=== PATIENT | male | born 1990 | race American Indian/Alaskan Native ===

== ENCOUNTER 2017-01-10 18:31 | Emergency (ER) | payer BC, OTHER ==
[2017-01-10 19:40] VITALS: BP 127/90
--- NOTE | 2017-01-10 19:46 | EDM.PDOC ---
ED HPI GENERAL MEDICAL PROBLEM - General Chief Complaint: Respiratory Problem Stated Complaint: FEELS LIKE LUNGS ARE INFLAMED [id number] Time Seen by Provider: 01/10/17 19:42 Source of Information: Reports: Patient History Limitations: Reports: No Limitations - History of Present Illness INITIAL COMMENTS - FREE TEXT/NARRATIVE: few days h/o lungs hurting, just started smoking recently. had to miss work. - Related Data Allergies Allergy/AdvReac Type Severity Reaction Status Date / Time No Known Allergies Allergy Verified 01/10/17 19:41 Home Meds: Home Meds . [No Known Home Meds] 03/16/15 [History] Past Medical History - Past Health History Medical/Surgical History: Denies Medical/Surgical History - Infectious Disease History Infectious Disease History: Reports: None Social & Family History - Tobacco Use Smoking Status *Q: Current Some Day Smoker Years of Tobacco use: 1 Packs/Tins Daily: 0.1 Second Hand Smoke Exposure: Yes - Caffeine Use Caffeine Use: Reports: Soda - Alcohol Use Days Per Week of Alcohol Use: 1 Number of Drinks Per Day: 12 Total Drinks Per Week: 12 - Recreational Drug Use Recreational Drug Use: Yes Drug Use in Last 12 Months: No Recreational Drug Type: Reports: Marijuana/Hashish Recreational Drug Use Frequency: Not Used In Over 6 Months ED ROS GENERAL - Review of Systems Review Of Systems: ROS reveals no pertinent complaints other than HPI. ED EXAM, GENERAL - Physical Exam Exam: See Below Exam Limited By: No Limitations General Appearance: Alert, WD/WN, No Apparent Distress Ears: Hearing Grossly Normal Throat/Mouth: Normal Voice, No Airway Compromise Head: Atraumatic Neck: Non-Tender, Full Range of Motion Respiratory/Chest: No Respiratory Distress, Lungs Clear, Normal Breath Sounds, No Accessory Muscle Use, Chest Non-Tender. No: Decreased Breath Sounds, Crackles, Rales, Rhonchi, Wheezing, Stridor, Pleural Rub, Accessory Muscle Use, Retractions, Splinting, Prolonged Expiration Cardiovascular: Regular Rate, Rhythm GI/Abdominal: Soft, Non-Tender Neurological: Alert, Oriented, Normal Cognition, Normal Gait, No Motor/Sensory Deficits Psychiatric: Normal Affect, Normal Mood Skin Exam: Warm, Dry Lymphatic: No Adenopathy Course - Vital Signs Last Recorded V/S: Last Vital Signs Temp 36.8 C 01/10/17 19:00 Pulse 89 01/10/17 19:00 Resp 16 01/10/17 19:00 BP 127/90 01/10/17 19:00 Pulse Ox 99 01/10/17 19:00 - Orders/Labs/Meds Orders: Active Orders 24 hr Category Date Time Status Chest 2V [CR] Urgent Exams 01/10/17 19:04 Taken - Re-Assessments/Exams Free Text/Narrative Re-Assessment/Exam: 01/10/17 19:44 negative x-ray discussed with Pt. Departure - Departure Time of Disposition: 19:44 Disposition: Home, Self-Care 01 Condition: good Clinical Impression: Chest wall discomfort - Discharge Information Instructions: Chest Wall Pain, [id number] Forms: ED Department Discharge Additional Instructions: 1) stop smoking 2) rest 3) try heat to sore areas 4) try tylenol or motrin for discomfort 5) follow up at clinic or recheck as needed - My Orders Last 24 Hours: My Active Orders 01/10/17 19:04 Chest 2V [CR] Urgent - Assessment/Plan Last 24 Hours: My Active Orders 01/10/17 19:04 Chest 2V [CR] Urgent
== END 2017-01-10 19:48 | disposition home or self-care (01) ==
LOC: DL.ED 18:31
DX: R07.89 Other chest pain (principal); F17.210 Nicotine dependence, cigarettes, uncomplicated
CPT/HCPCS: 71020; 99284

== ENCOUNTER 2017-10-21 15:26 | Emergency (ER) | payer OTHER ==
[2017-10-21 15:45] VITALS: BP 141/83
--- NOTE | 2017-10-21 16:32 | EDM.PDOC ---
Scribed by Isidra Chang 10/21/17 1632 for Syed Blanco MD ED HPI GENERAL MEDICAL PROBLEM - General Chief Complaint: Respiratory Problem Stated Complaint: HEAD POUNDING,CONGESTED [id number] Time Seen by Provider: 10/21/17 16:10 Source of Information: Reports: Patient, RN, RN Notes Reviewed History Limitations: Reports: No Limitations - History of Present Illness INITIAL COMMENTS - FREE TEXT/NARRATIVE: Sore throat x3 days. Mild cough. No fevers but did no measure temperature. Denies any other symptoms. Duration: Getting Worse Location: Reports: Other (throat) Quality: Reports: Ache Severity: Moderate Improves with: Reports: None Worsens with: Reports: None Associated Symptoms: Reports: No Other Symptoms Headache Pain Score (Numeric/FACES): 6 - Related Data Allergies Allergy/AdvReac Type Severity Reaction Status Date / Time No Known Allergies Allergy Verified 01/10/17 19:41 Home Meds: Home Meds . [No Known Home Meds] 03/16/15 [History] Past Medical History - Past Health History Medical/Surgical History: Denies Medical/Surgical History - Infectious Disease History Infectious Disease History: Reports: None Social & Family History - Family History Family Medical History: Noncontributory - Tobacco Use Smoking Status *Q: Current Some Day Smoker Years of Tobacco use: 1 Packs/Tins Daily: 0.1 Second Hand Smoke Exposure: Yes - Caffeine Use Caffeine Use: Reports: Soda - Alcohol Use Days Per Week of Alcohol Use: 1 Number of Drinks Per Day: 12 Total Drinks Per Week: 12 - Recreational Drug Use Recreational Drug Use: Yes Drug Use in Last 12 Months: No Recreational Drug Type: Reports: Marijuana/Hashish Recreational Drug Use Frequency: Not Used In Over 6 Months ED ROS ENT - Review of Systems Review Of Systems: ROS reveals no pertinent complaints other than HPI. ED EXAM, ENT - Physical Exam Exam: See Below Exam Limited By: No Limitations General Appearance: Alert, WD/WN, No Apparent Distress Eye Exam: Bilateral Eye: Normal Inspection Ears: Normal External Exam, Normal Canal, Hearing Grossly Normal, Normal TMs Nose: Normal Inspection, Normal Mucousa, No Blood Mouth/Throat: Normal Gums, Normal Lips, Normal Teeth, Tonsillar Erythema, Tonsillar Exudates, Other (pharyngeal erythema with tonsillar exudates.). No: Uvular Deviation, Uvular Edema Head: Atraumatic, Normocephalic Neck: Other (shoddy cervical lymphadenopathy. No nuchal rigidity. ) Respiratory/Chest: No Respiratory Distress, Lungs Clear, Normal Breath Sounds, No Accessory Muscle Use, Chest Non-Tender, Other (occasional dry cough.) Cardiovascular: Normal Peripheral Pulses, Regular Rate, Rhythm, No Edema, No Gallop, No JVD, No Murmur, No Rub GI/Abdominal: Normal Bowel Sounds, Soft, Non-Tender, No Organomegaly, No Distention, No Abnormal Bruit, No Mass (Male) Exam: Deferred Rectal (Males) Exam: Deferred Back: Normal Inspection, Full Range of Motion Extremities: Normal Inspection, Normal Range of Motion, Non-Tender, No Pedal Edema, Normal Capillary Refill Neurological: Alert, Oriented, CN II-XII Intact, Normal Cognition, Normal Gait, No Motor/Sensory Deficits Psychiatric: Normal Affect, Normal Mood Skin: Warm, Dry, Intact, Normal Color, No Rash Course - Vital Signs Last Recorded V/S: Last Vital Signs Temp 36.8 C 10/21/17 15:33 Pulse 100 10/21/17 15:33 Resp 18 10/21/17 15:33 BP 141/83 H 10/21/17 15:33 Pulse Ox 97 10/21/17 15:33 - Orders/Labs/Meds Labs: Rapid strep: Positive. Departure - Departure Time of Disposition: 16:18 Disposition: Home, Self-Care 01 Condition: Good Clinical Impression: Strep pharyngitis - Discharge Information Instructions: Strep Throat, [id number] Forms: ED Department Discharge Additional Instructions: RX: Zithromax 500mg. RX: Prednisone 20mg. Frequent salt water garlges until improved. Follow up in clinic in 2days if not improved. I have read and agree with the documentation that has been completed regarding this visit. By signing this record, I attest that the documentation was completed in my physical presence and is an accurate record of the encounter.
== END 2017-10-21 16:30 | disposition home or self-care (01) ==
LOC: DL.ED 15:26
DX: J02.0 Streptococcal pharyngitis (principal); F17.210 Nicotine dependence, cigarettes, uncomplicated
CPT/HCPCS: 87430; 87804; 99282

== ENCOUNTER 2018-04-12 12:21 | Emergency (ER) | payer MEDICAID, OTHER ==
[2018-04-12 12:52] VITALS: BP 123/92
[2018-04-12 13:34] LABS: ANION GAP 13.2; CHLORIDE,CL 99 mmol/L (101-111); SODIUM,NA 135 mmol/L (135-145)
[2018-04-12] MEDS ORDERED: Penicillin G Benzathine/Procaine 600-600 1.2 Millunits/2 ML Syringe IM ONE (13:37)
--- NOTE | 2018-04-12 13:54 | EDM.PDOC ---
Scribed by Isidra Chang 04/12/18 [id number] for Roque Obrien PA ED HPI GENERAL MEDICAL PROBLEM - General Chief Complaint: ENT Problem Stated Complaint: NOT FEELING GOOD Time Seen by Provider: 04/12/18 12:59 Source of Information: Reports: Patient, RN, RN Notes Reviewed History Limitations: Reports: No Limitations - History of Present Illness INITIAL COMMENTS - FREE TEXT/NARRATIVE: Patient is a 28-year-old male states yesterday he had a sore throat. He has been drinking warm salt water. He also has sharp abdominal pain this a.m. (no surgeries). Onset Date: 04/11/18 Duration: Getting Worse Location: Reports: Abdomen, Other (throat) Quality: Reports: Ache Severity: Moderate Improves with: Reports: None, Medication Associated Symptoms: Reports: No Other Symptoms Throat Pain Score (Numeric/FACES): 5 - Related Data Allergies Allergy/AdvReac Type Severity Reaction Status Date / Time No Known Allergies Allergy Verified 04/12/18 12:48 Home Meds: Home Meds . [No Known Home Meds] 03/16/15 [History] Past Medical History - Past Health History Medical/Surgical History: Denies Medical/Surgical History HEENT History: Reports: None Cardiovascular History: Reports: None Respiratory History: Reports: None Gastrointestinal History: Reports: None Genitourinary History: Reports: None Musculoskeletal History: Reports: None Neurological History: Reports: None Psychiatric History: Reports: None Endocrine/Metabolic History: Reports: None Hematologic History: Reports: None Immunologic History: Reports: None Oncologic (Cancer) History: Reports: None Dermatologic History: Reports: None - Infectious Disease History Infectious Disease History: Reports: None Social & Family History - Family History Family Medical History: Noncontributory - Tobacco Use Smoking Status *Q: Former Smoker Used Tobacco, but Quit: Yes Month/Year Tobacco Last Used: ? - Caffeine Use Caffeine Use: Reports: Soda - Recreational Drug Use Recreational Drug Use: No ED ROS ENT - Review of Systems Review Of Systems: ROS reveals no pertinent complaints other than HPI. ED EXAM, ENT - Physical Exam Exam: See Below Exam Limited By: No Limitations General Appearance: Other (ill appearing) Eye Exam: Bilateral Eye: EOMI, Normal Inspection, PERRL Ears: Normal External Exam, Normal Canal, Hearing Grossly Normal, Normal TMs Nose: Normal Inspection, Normal Mucousa, No Blood Mouth/Throat: Other (enlarged tonsils with exudates) Head: Atraumatic, Normocephalic Neck: Other (bilateral cervical lymphadenopathy) Respiratory/Chest: No Respiratory Distress, Lungs Clear, Normal Breath Sounds, No Accessory Muscle Use, Chest Non-Tender Cardiovascular: Normal Peripheral Pulses, Regular Rate, Rhythm, No Edema, No Gallop, No JVD, No Murmur, No Rub GI/Abdominal: Other (diffuse abdominal pain lower abdomen. Negative psoas. Positive right lower quadrant.) (Male) Exam: Deferred Rectal (Males) Exam: Deferred Back: Normal Inspection, Full Range of Motion Extremities: Normal Inspection, Normal Range of Motion, Non-Tender, No Pedal Edema, Normal Capillary Refill Neurological: Alert Psychiatric: Normal Affect, Normal Mood Skin: Warm, Dry, Intact, Normal Color, No Rash Lymphatic: Adenopathy (cervical lymphadenopathy adenopathy) Course - Vital Signs Last Recorded V/S: Last Vital Signs Temp 38.1 C 04/12/18 12:49 Pulse 105 H 04/12/18 12:49 Resp 18 04/12/18 12:49 BP 123/92 H 04/12/18 12:49 Pulse Ox 99 04/12/18 12:49 - Orders/Labs/Meds Orders: Active Orders 24 hr Category Date Time Status CULTURE BLOOD [BC] Stat Lab 04/12/18 13:09 Received DRUG SCREEN URINE BIORAD [URCHEM] Stat Lab 04/12/18 13:09 Ordered UA W/MICROSCOPIC [URIN] Stat Lab 04/12/18 13:09 Ordered Labs: Laboratory Tests 04/12/18 04/12/18 04/12/18 Range/Units 13:09 13:09 13:09 WBC (5.0-10.0) 10^3/uL RBC (4.6-6.2) 10^6/uL Hgb (14.0-18.0) g/dL Hct (40.0-54.0) % MCV (80-100) fL MCH (27.0-34.0) pg MCHC (33.0-35.0) g/dL Plt Count (150-450) 10^3/uL Neut % (Auto) (42.2-75.2) % Lymph % (Auto) (20.5-50.1) % Ramsey % (Auto) (2-8) % Eos % (Auto) (1.0-3.0) % Baso % (Auto) (0.0-1.0) % Sodium (135-145) mmol/L Potassium (3.6-5.0) mmol/L Chloride (101-111) mmol/L Carbon Dioxide (21.0-31.0) mmol/L Anion Gap BUN (7-18) mg/dL Creatinine (0.6-1.3) mg/dL Est Cr Clr Drug Dosing mL/min Estimated GFR (MDRD) BUN/Creatinine Ratio Glucose (74-105) mg/dL Lactic Acid 2.2 (0.5-2.2) mmol/L Calcium (8.4-10.2) mg/dl Total Bilirubin (0.2-1.0) mg/dL AST (10-42) IU/L ALT (10-60) IU/L Alkaline Phosphatase (42-121) IU/L Total Protein (6.7-8.2) g/dl Albumin (3.2-5.5) g/dl Globulin Albumin/Globulin Ratio Urine Color Straw (YELLOW) Urine Appearance Clear (CLEAR) Urine pH 8.5 (5.0-9.0) Ur Specific [place] 1.020 (1.005-1.030) Urine Protein 30 H (NEGATIVE) Urine Glucose (UA) Negative (NEGATIVE) Urine Ketones Negative (NEGATIVE) Urine Occult Blood Negative (NEGATIVE) Urine Nitrite Negative (NEGATIVE) Urine Bilirubin Negative (NEGATIVE) Urine Urobilinogen 1.0 (0.2-1.0) mg/dL Ur Leukocyte Esterase Negative (NEGATIVE) Urine RBC 0-5 /HPF Urine WBC 0-5 (0-5/HPF) /HPF Ur Epithelial Cells Rare /HPF Amorphous Sediment Few (0/HPF) /HPF Urine Bacteria Not seen (0-FEW/HPF) /HPF Urine Mucus Many H /LPF Urine Opiates Screen Negative (NEGATIVE) Ur Oxycodone Screen Positive H (NEGATIVE) Urine Methadone Screen Negative (NEGATIVE) Ur Barbiturates Screen Negative (NEGATIVE) U Tricyclic Antidepress Negative (NEGATIVE) Ur Phencyclidine Scrn Negative (NEGATIVE) Ur Amphetamine Screen Negative (NEGATIVE) U Methamphetamines Scrn Negative (NEGATIVE) Urine MDMA Screen Negative (NEGATIVE) U Benzodiazepines Scrn Negative (NEGATIVE) Urine Cocaine Screen Negative (NEGATIVE) U Marijuana (THC) Screen Positive H (NEGATIVE) 04/12/18 04/12/18 Range/Units 13:09 13:09 WBC 14.9 H (5.0-10.0) 10^3/uL RBC 4.89 (4.6-6.2) 10^6/uL Hgb 15.1 (14.0-18.0) g/dL Hct 44.9 (40.0-54.0) % MCV 91.8 D (80-100) fL MCH 30.9 (27.0-34.0) pg MCHC 33.6 (33.0-35.0) g/dL Plt Count 214 (150-450) 10^3/uL Neut % (Auto) 87.5 H (42.2-75.2) % Lymph % (Auto) 5.3 L (20.5-50.1) % Ramsey % (Auto) 7.0 (2-8) % Eos % (Auto) 0.1 L (1.0-3.0) % Baso % (Auto) 0.1 (0.0-1.0) % Sodium 135 (135-145) mmol/L Potassium 3.2 L (3.6-5.0) mmol/L Chloride 99 L (101-111) mmol/L Carbon Dioxide 26.0 (21.0-31.0) mmol/L Anion Gap 13.2 BUN 7 (7-18) mg/dL Creatinine 0.9 (0.6-1.3) mg/dL Est Cr Clr Drug Dosing 144.61 mL/min Estimated GFR (MDRD) > 60 BUN/Creatinine Ratio 7.77 Glucose 109 H (74-105) mg/dL Lactic Acid (0.5-2.2) mmol/L Calcium 9.3 (8.4-10.2) mg/dl Total Bilirubin 0.8 (0.2-1.0) mg/dL AST 26 (10-42) IU/L ALT 21 (10-60) IU/L Alkaline Phosphatase 76 (42-121) IU/L Total Protein 8.4 H (6.7-8.2) g/dl Albumin 4.5 (3.2-5.5) g/dl Globulin 3.9 Albumin/Globulin Ratio 1.15 Urine Color (YELLOW) Urine Appearance (CLEAR) Urine pH (5.0-9.0) Ur Specific [place] (1.005-1.030) Urine Protein (NEGATIVE) Urine Glucose (UA) (NEGATIVE) Urine Ketones (NEGATIVE) Urine Occult Blood (NEGATIVE) Urine Nitrite (NEGATIVE) Urine Bilirubin (NEGATIVE) Urine Urobilinogen (0.2-1.0) mg/dL Ur Leukocyte Esterase (NEGATIVE) Urine RBC /HPF Urine WBC (0-5/HPF) /HPF Ur Epithelial Cells /HPF Amorphous Sediment (0/HPF) /HPF Urine Bacteria (0-FEW/HPF) /HPF Urine Mucus /LPF Urine Opiates Screen (NEGATIVE) Ur Oxycodone Screen (NEGATIVE) Urine Methadone Screen (NEGATIVE) Ur Barbiturates Screen (NEGATIVE) U Tricyclic Antidepress (NEGATIVE) Ur Phencyclidine Scrn (NEGATIVE) Ur Amphetamine Screen (NEGATIVE) U Methamphetamines Scrn (NEGATIVE) Urine MDMA Screen (NEGATIVE) U Benzodiazepines Scrn (NEGATIVE) Urine Cocaine Screen (NEGATIVE) U Marijuana (THC) Screen (NEGATIVE) Meds: Medications Discontinued Medications Generic Name Dose Route Start Last Admin Trade Name Anthonyq PRN Reason Stop Dose Admin Penicillin G Procaine/Benzathine 1.2 millunits 04/12/18 13:37 04/12/18 13:50 Bicillin C-R 600/600 IM 04/12/18 13:38 1.2 millunits ONETIME ONE Administration Departure - Departure Time of Disposition: 13:51 Disposition: Home, Self-Care 01 Condition: Poor Clinical Impression: Strep pharyngitis - Discharge Information *PRESCRIPTION DRUG MONITORING PROGRAM REVIEWED*: Not Applicable *COPY OF PRESCRIPTION DRUG MONITORING REPORT IN PATIENT BRANNON: Not Applicable Instructions: Strep Throat, [id number] Forms: ED Department Discharge Care Plan Goals: The patient was advised of the examination and lab results during the visit. The patient was given an injection of Bicillin while in the ED. The patient was discharged with a script for Azithromycin (250 mg) #6 to take 2 by mouth on day 1 and 1 by mouth on days 2-5. The patient should take Tylenol or ibuprofen as directed for temporary symptom relief. If the patient has any additional symptoms or concerns, the patient should follow-up with his primary care facility or return to the emergency department. - My Orders Last 24 Hours: My Active Orders 04/12/18 13:09 CULTURE BLOOD [BC] Stat DRUG SCREEN URINE BIORAD [URCHEM] Stat UA W/MICROSCOPIC [URIN] Stat - Assessment/Plan Last 24 Hours: My Active Orders 04/12/18 13:09 CULTURE BLOOD [BC] Stat DRUG SCREEN URINE BIORAD [URCHEM] Stat UA W/MICROSCOPIC [URIN] Stat I have read and agree with the documentation that has been completed regarding this visit. By signing this record, I attest that the documentation was completed in my physical presence and is an accurate record of the encounter.
== END 2018-04-12 14:00 | disposition home or self-care (01) ==
LOC: DL.ED 12:21
DX: J02.0 Streptococcal pharyngitis (principal); Z87.891 Personal history of nicotine dependence
CPT/HCPCS: 36415; 80053; 80305; 81001; 83605; 85025; 87040; 87430; 96372; 99283; J0558

== ENCOUNTER 2018-05-16 16:46 | Emergency (ER) | payer OTHER ==
[2018-05-16] MEDS ORDERED: Iopamidol 612 MG/ML 75 ML Bottle IVPUSH ONE (18:09)
[2018-05-16] MEDS ORDERED: Sodium Chloride 0.9% 10 ML Syringe FLUSH PRN (18:25)
[2018-05-16 18:35] LABS: ANION GAP 15.5; CHLORIDE,CL 97 mmol/L (101-111); SODIUM,NA 134 mmol/L (135-145)
[2018-05-16] MEDS ORDERED: methylPREDNISolone Sodium Succinate 125 MG/2 ML SDV IVPUSH ONE (18:40)
[2018-05-16] MEDS ORDERED: Sodium Chloride 0.9% 1,000 ML IV ONE (18:40)
[2018-05-16] MEDS ORDERED: Penicillin G Potassium 5 MILLUNITS in Sodium Chloride 0.9% 100 ML IV ONE (18:41)
--- NOTE | 2018-05-16 18:57 | EDM.PDOC ---
<Katheryn Kingsley - Last Filed: 05/16/18 18:57> ED HPI GENERAL MEDICAL PROBLEM - General Chief Complaint: ENT Problem Stated Complaint: [id number] Time Seen by Provider: 05/16/18 17:20 Source of Information: Reports: Patient, RN, RN Notes Reviewed History Limitations: Reports: Other (difficult to speak) - History of Present Illness INITIAL COMMENTS - FREE TEXT/NARRATIVE: Pt to Er with c/o sore throat. States he had strep throat the end of March and was given a shot and some abx to follow up with. States he has recently gotten very swollen in the throat and is unable to swallow his saliva. Patient states he has had some fever and chills but "not bad". Voice is muffled. Onset: Gradual Throat Pain Score (Numeric/FACES): 10 - Related Data Allergies Allergy/AdvReac Type Severity Reaction Status Date / Time No Known Allergies Allergy Verified 05/16/18 17:22 Home Meds: Home Meds . [No Known Home Meds] 03/16/15 [History] Past Medical History - Past Health History Medical/Surgical History: Denies Medical/Surgical History HEENT History: Reports: None Cardiovascular History: Reports: None Respiratory History: Reports: None Gastrointestinal History: Reports: None Genitourinary History: Reports: None Musculoskeletal History: Reports: None Neurological History: Reports: None Psychiatric History: Reports: None Endocrine/Metabolic History: Reports: None Hematologic History: Reports: None Immunologic History: Reports: None Oncologic (Cancer) History: Reports: None Dermatologic History: Reports: None - Infectious Disease History Infectious Disease History: Reports: None - Past Surgical History Head Surgeries/Procedures: Reports: None Social & Family History - Family History Family Medical History: Noncontributory - Tobacco Use Smoking Status *Q: Current Every Day Smoker Years of Tobacco use: 3 Packs/Tins Daily: 0.5 Second Hand Smoke Exposure: No - Caffeine Use Caffeine Use: Reports: None - Recreational Drug Use Recreational Drug Use: No ED ROS ENT - Review of Systems Review Of Systems: ROS reveals no pertinent complaints other than HPI. ED EXAM, ENT - Physical Exam Exam: See Below Exam Limited By: Other (difficult to speak) General Appearance: Alert, WD/WN, Moderate Distress Eye Exam: Bilateral Eye: EOMI, Normal Inspection Ears: Normal External Exam, Hearing Grossly Normal Nose: Normal Inspection Mouth/Throat: Muffled Voice, Pharyngeal Erythema, Throat Pain, Tonsillar Erythema, Tonsillar Exudates, Tonsillar Swelling Head: Atraumatic, Normocephalic Neck: Normal Inspection, Supple, Full Range of Motion, Lymphadenopathy (L), Lymphadenopathy (R), Tender Lateral Respiratory/Chest: No Respiratory Distress, Lungs Clear, Normal Breath Sounds, No Accessory Muscle Use, Chest Non-Tender Cardiovascular: Normal Peripheral Pulses, Regular Rate, Rhythm, No Edema, No Gallop, No JVD, No Murmur, No Rub GI/Abdominal: Normal Bowel Sounds, Soft, Non-Tender (Male) Exam: Deferred Rectal (Males) Exam: Deferred Back: Normal Inspection, Full Range of Motion Extremities: Normal Inspection, Normal Range of Motion, Non-Tender, No Pedal Edema, Normal Capillary Refill Neurological: Alert, Oriented, CN II-XII Intact, Normal Cognition, Normal Gait, Normal Reflexes, No Motor/Sensory Deficits Psychiatric: Anxious, Tearful Skin: Warm, Dry, Intact, Normal Color, No Rash Lymphatic: Adenopathy (anterior cervical +3 bilateral) Course - Vital Signs Last Recorded V/S: Last Vital Signs Temp 37.8 C 05/16/18 18:58 Pulse 105 H 05/16/18 18:58 Resp 18 05/16/18 18:58 BP 137/81 05/16/18 18:58 Pulse Ox 97 05/16/18 18:58 - Orders/Labs/Meds Orders: Active Orders 24 hr Category Date Time Status Peripheral IV Care [RC] . DIRECTED Care 05/16/18 18:26 Active CULTURE STREP A CONFIRMATION [] Stat Lab 05/16/18 17:30 Results STREP SCRN A RAPID W CULT CONF [] Stat Lab 05/16/18 17:30 Results Sodium Chloride 0.9% [Normal Saline] 1,000 ml Med 05/16/18 18:40 Active IV .BOLUS Sodium Chloride 0.9% [Saline Flush] Med 05/16/18 18:25 Active 10 ml FLUSH ASDIRECTED PRN Peripheral IV Insertion Adult [OM.PC] Stat Oth 05/16/18 18:25 Ordered Medication Orders Sodium Chloride (Normal Saline) 1,000 mls @ 999 mls/hr IV .BOLUS ONE Stop: 05/16/18 19:40 Last Admin: 05/16/18 18:54 Dose: 999 mls/hr Sodium Chloride (Saline Flush) 10 ml FLUSH ASDIRECTED PRN PRN Reason: Keep Vein Open Last Admin: 05/16/18 18:30 Dose: 10 ml Labs: Laboratory Tests 05/16/18 05/16/18 05/16/18 Range/Units 18:09 18:09 18:09 WBC 17.3 H (5.0-10.0) 10^3/uL RBC 4.93 (4.6-6.2) 10^6/uL Hgb 15.3 (14.0-18.0) g/dL Hct 44.5 (40.0-54.0) % MCV 90.3 (80-100) fL MCH 31.0 (27.0-34.0) pg MCHC 34.4 (33.0-35.0) g/dL Plt Count 198 (150-450) 10^3/uL Neut % (Auto) 84.5 H (42.2-75.2) % Lymph % (Auto) 7.1 L (20.5-50.1) % [place] % (Auto) 8.3 H (2-8) % Eos % (Auto) 0.0 L (1.0-3.0) % Baso % (Auto) 0.1 (0.0-1.0) % Sodium 134 L (135-145) mmol/L Potassium 3.5 L (3.6-5.0) mmol/L Chloride 97 L (101-111) mmol/L Carbon Dioxide 25.0 (21.0-31.0) mmol/L Anion Gap 15.5 BUN 7 (7-18) mg/dL Creatinine 0.7 (0.6-1.3) mg/dL Est Cr Clr Drug Dosing 185.93 mL/min Estimated GFR (MDRD) > 60 BUN/Creatinine Ratio 10.00 Glucose 97 (74-105) mg/dL Lactic Acid 0.8 (0.5-2.2) mmol/L Calcium 9.5 (8.4-10.2) mg/dl Total Bilirubin 1.2 H (0.2-1.0) mg/dL AST 22 (10-42) IU/L ALT 20 (10-60) IU/L Alkaline Phosphatase 72 (42-121) IU/L Total Protein 8.8 H (6.7-8.2) g/dl Albumin 4.5 (3.2-5.5) g/dl Globulin 4.3 Albumin/Globulin Ratio 1.05 Meds: Medications Generic Name Dose Route Start Last Admin Trade Name Marcy PRN Reason Stop Dose Admin Sodium Chloride 1,000 mls @ 999 mls/hr 05/16/18 18:40 05/16/18 18:54 Normal Saline IV 05/16/18 19:40 999 mls/hr .BOLUS ONE Administration Sodium Chloride 10 ml 05/16/18 18:25 05/16/18 18:30 Saline Flush FLUSH 10 ml ASDIRECTED PRN Administration Keep Vein Open Discontinued Medications Generic Name Dose Route Start Last Admin Trade Name Freq PRN Reason Stop Dose Admin Penicillin G Potassium 5 100 mls @ 200 mls/hr 05/16/18 18:41 05/16/18 19:02 millunits/ Sodium Chloride IV 05/16/18 19:10 200 mls/hr ONETIME ONE Administration Iopamidol 75 ml 05/16/18 18:09 05/16/18 18:14 Isovue-300 (61%) IVPUSH 05/16/18 18:10 75 ml ONETIME ONE Administration Methylprednisolone Sodium Succinate 125 mg 05/16/18 18:40 05/16/18 18:55 Solu-Medrol IVPUSH 05/16/18 18:41 125 mg ONETIME ONE Administration Departure - Departure Disposition: DC/Tfer to [facility] 02 Clinical Impression: Peritonsillar abscess - Discharge Information Forms: Interfacility Transfer EMTAL[employer] <Miguelito Ba - Last Filed: 05/16/18 19:37> Course - Re-Assessments/Exams Free Text/Narrative Re-Assessment/Exam: 05/16/18 19:[address] Gar [facility] who kindly accepted pt. Departure - Departure Time of Disposition: 19:36 Condition: Fair
[2018-05-16 19:00] VITALS: BP 137/81
== END 2018-05-16 20:22 ==
LOC: DL.ED 16:46
DX: J36 Peritonsillar abscess (principal); F17.210 Nicotine dependence, cigarettes, uncomplicated
CPT/HCPCS: 36415; 70491; 80053; 83605; 85025; 87081; 87430; 96365; 96368; 96375; 99285; J2540; J2930; J7030; J7050; Q9967

== ENCOUNTER 2018-05-23 18:11 | Emergency (ER) | payer OTHER ==
[2018-05-23] MEDS ORDERED: Acetaminophen/oxyCODONE 325-5 MG Tab PO ONE (18:12)
[2018-05-23 19:07] VITALS: BP 148/90
--- NOTE | 2018-05-23 19:18 | EDM.PDOC ---
ED HPI GENERAL MEDICAL PROBLEM - General Chief Complaint: ENT Problem Stated Complaint: POST ENT PAIN Time Seen by Provider: 05/23/18 19:05 Source of Information: Reports: Patient History Limitations: Reports: No Limitations - History of Present Illness INITIAL COMMENTS - FREE TEXT/NARRATIVE: Tonsils out yesterday, Home today. C/o pain unrelieved with tylenol. ENT RN reported to call earlier to notify patient had left hospital without receiving his RX for pain medication. Patient staes he has been using tylenol without relief. Denies bleeding. Is tolerating fluids. Throat Pain Score (Numeric/FACES): 7 - Related Data Allergies Allergy/AdvReac Type Severity Reaction Status Date / Time No Known Allergies Allergy Verified 05/23/18 19:02 Home Meds: Home Meds . [No Known Home Meds] 03/16/15 [History] Past Medical History - Past Health History Medical/Surgical History: Denies Medical/Surgical History HEENT History: Reports: None Cardiovascular History: Reports: None Respiratory History: Reports: None Gastrointestinal History: Reports: None Genitourinary History: Reports: None Musculoskeletal History: Reports: None Neurological History: Reports: None Psychiatric History: Reports: None Endocrine/Metabolic History: Reports: None Hematologic History: Reports: None Immunologic History: Reports: None Oncologic (Cancer) History: Reports: None Dermatologic History: Reports: None - Infectious Disease History Infectious Disease History: Reports: None - Past Surgical History Head Surgeries/Procedures: Reports: None HEENT Surgical History: Reports: Tonsillectomy, Other (See Below) Other HEENT Surgeries/Procedures: wisdom teeth Social & Family History - Family History Family Medical History: Noncontributory - Tobacco Use Smoking Status *Q: Light Tobacco Smoker Years of Tobacco use: 5 Packs/Tins Daily: 0.1 - Caffeine Use Caffeine Use: Reports: None - Recreational Drug Use Recreational Drug Use: No ED ROS ENT - Review of Systems Review Of Systems: ROS reveals no pertinent complaints other than HPI. ED EXAM, ENT - Physical Exam Exam: See Below Exam Limited By: No Limitations General Appearance: Alert, Moderate Distress Eye Exam: Bilateral Eye: EOMI Ears: Normal External Exam, Normal Canal. No: TM Erythema Nose: Normal Inspection Mouth/Throat: Pharyngeal Erythema, Other (wnl appearance for post op tonsillectomy , mild erythema, no active bleeding. Muffled voice ). No: Bleeding Head: Atraumatic, Normocephalic Neck: Normal Inspection. No: Limited Range of Motion, Lymphadenopathy (L) Respiratory/Chest: No Respiratory Distress, Lungs Clear, Normal Breath Sounds Cardiovascular: Normal Peripheral Pulses, Regular Rate, Rhythm Extremities: Normal Range of Motion Neurological: Alert, Oriented, Normal Cognition Psychiatric: Normal Affect Skin: Warm, Dry Course - Vital Signs Last Recorded V/S: Last Vital Signs Temp 97.6 F 05/23/18 19:05 Pulse 74 05/23/18 19:05 Resp 16 05/23/18 19:05 BP 148/90 H 05/23/18 19:05 Pulse Ox 99 05/23/18 19:05 - Orders/Labs/Meds Meds: Medications Discontinued Medications Generic Name Dose Route Start Last Admin Trade Name Anthonyq PRN Reason Stop Dose Admin Oxycodone/Acetaminophen Confirm 05/23/18 19:23 05/23/18 19:31 Percocet 325-5 Mg Administered 05/23/18 19:24 Not Given Dose 3 tab .ROUTE .STK-MED ONE Departure - Departure Time of Disposition: 19:19 Disposition: Home, Self-Care 01 Condition: Good Clinical Impression: S/P tonsillectomy and adenoidectomy - Discharge Information *PRESCRIPTION DRUG MONITORING PROGRAM REVIEWED*: Not Applicable Instructions: Tonsillectomy, Adult, Care After Referrals: Cristiano Cartwright [Ordering Only Provider] - Forms: ED Department Discharge Additional Instructions: increase fluid intake follow up if any bleeding ENT follow up as scheduled Percocet 5/325 one every 6 hours as needed for severe pain.
[2018-05-23] MEDS ORDERED: Acetaminophen/oxyCODONE 325-5 MG Tab ONE (19:23)
== END 2018-05-23 19:31 | disposition home or self-care (01) ==
LOC: DL.ED 18:11
DX: R07.0 Pain in throat (principal); Z98.890 Other specified postprocedural states
CPT/HCPCS: 99283; A9270-GY

== ENCOUNTER 2020-05-18 22:59 | Emergency (ER) | payer OTHER ==
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
[2020-05-19 01:06] VITALS: BP 119/78; PULSE 96
[2020-05-19 01:44] LABS: ANION GAP 14.3 mEq/L (7-13); CHLORIDE,CL 106 mmol/L (98-107); SODIUM,NA 142 mmol/L (136-145)
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
== END 2020-05-19 03:58 ==
LOC: DL.ED 22:59
DX: S06.5X9A Traumatic subdural hemorrhage with loss of consciousness of unspecified duration, initial encounter (principal); S01.111A Laceration without foreign body of right eyelid and periocular area, initial encounter; S01.21XA Laceration without foreign body of nose, initial encounter; S20.319A Abrasion of unspecified front wall of thorax, initial encounter; F10.129 Alcohol abuse with intoxication, unspecified; Y90.6 Blood alcohol level of 120-199 mg/100 ml; Z20.828 Contact with and (suspected) exposure to other viral communicable diseases; Y04.0XXA Assault by unarmed brawl or fight, initial encounter
CPT/HCPCS: 36415; 70450; 70486; 72125; 80053; 80307; 85025; 99284; 99285-25; U0002

== ENCOUNTER 2021-07-12 18:23 | Emergency (ER) | payer MEDICAID, OTHER ==
--- NOTE | 2021-07-12 18:35 | EDM.PDOC ---
ED HPI GENERAL MEDICAL PROBLEM <Sandhya Candelario - Last Filed: 07/13/21 06:24> - General Source of Information: Reports: Patient, EMS, RN, RN Notes Reviewed History Limitations: Reports: Altered Mental Status <Nery Oreilly - Last Filed: 07/13/21 11:25> - General Chief Complaint: Behavioral/Psych Stated Complaint: OD, AMBULANCE Time Seen by Provider: 07/12/21 20:30 - History of Present Illness INITIAL COMMENTS - FREE TEXT/NARRATIVE: Felix is a 31 y/o male who presents to the ED via [facility] due to unintentional overdose of a recreational drug. Per EMS report, they received a call to a home where multiple individuals were inhaling and injecting various drugs. Upon their arrival the patient was noted to be breathing with a pulse, however IN Narcan was administered for poor inspiratory effort. The patient did not require respiratory assistance via bag-mask valve. Upon arrival to this facility the patient is lethargic with a GCS of 14; he is able to state his name and move all extremities to command. Oxygen saturation in the low 90s with a RR in the low 20s. He states he inhaled Fentanyl; he denies smoking or injecting. (Nery Oreilly) - Related Data Allergies Allergy/AdvReac Type Severity Reaction Status Date / Time No Known Allergies Allergy Verified 07/12/21 18:36 Home Meds: Home Meds . [No Known Home Meds] 03/16/15 [History] Past Medical History - Past Health History Medical/Surgical History: Denies Medical/Surgical History HEENT History: Reports: None Cardiovascular History: Reports: None Respiratory History: Reports: None Gastrointestinal History: Reports: None Genitourinary History: Reports: None Musculoskeletal History: Reports: None Neurological History: Reports: None Psychiatric History: Reports: Anxiety, Suicide Attempt Endocrine/Metabolic History: Reports: None Hematologic History: Reports: None Immunologic History: Reports: None Oncologic (Cancer) History: Reports: None Dermatologic History: Reports: None - Infectious Disease History Infectious Disease History: Reports: None - Past Surgical History Head Surgeries/Procedures: Reports: None HEENT Surgical History: Reports: Tonsillectomy, Other (See Below) Other HEENT Surgeries/Procedures: wisdom teeth <Nery Oreillye - Last Filed: 07/13/21 11:25> Social & Family History - Family History Family Medical History: No Pertinent Family History - Caffeine Use Caffeine Use: Reports: None <Nery Oreilly - Last Filed: 07/13/21 11:25> ED ROS GENERAL - Review of Systems Review Of Systems: Comprehensive ROS is negative, except as noted in HPI. <Sandhya Candelario - Last Filed: 07/13/21 06:24> - Physical Exam Exam: See Below Exam Limited By: No Limitations General Appearance: Lethargic (arouses to verbal and tactile stimuli), Other (hickeys visible all over neck and lowe face.) Eye Exam: Bilateral Eye: EOMI Ears: Normal External Exam Nose: Normal Inspection Throat/Mouth: Normal Inspection Head Exam: Atraumatic, Normocephalic Neck: Normal Inspection, Supple, Non-Tender, Full Range of Motion Respiratory/Chest: No Respiratory Distress Cardiovascular: Normal Peripheral Pulses, Regular Rate, Rhythm GI/Abdominal: Normal Bowel Sounds, Soft Neuro Exam (Abbreviated): Alert, Normal Reflexes, Inattentive, Memory Loss Remote Events, Abnormal Reflexes Extremities: Normal Inspection <Sandhya Candelario - Last Filed: 07/13/21 06:24> #1 Interpretation EKG Date: 07/12/21 Time: 19:18 Rhythm: NSR Rate (Beats/Min): 79 [place]: Normal P-Wave: Present QRS: Normal ST-T: Elevated (mild in II, III, aVF, V3-V6) QT: Normal MS/PQ Interval: 0.176 Comparison: Change From Previous EKG <Nery Oreilly - Last Filed: 07/13/21 11:25> #1 Interpretation EKG Interpretation Comments: NSR; q-wave in III and aVF; ST elevated in V3-V6 (Nery Oreilly) Course <LancechristianRadha lintony Hector - Last Filed: 07/13/21 06:24> <Nery Oreilly - Last Filed: 07/13/21 11:25> - Vital Signs Last Recorded V/S: Last Vital Signs Temp 98.0 F 07/12/21 19:20 Pulse 84 07/12/21 19:20 Resp 16 07/12/21 19:20 BP 130/96 H 07/12/21 19:20 Pulse Ox 99 07/12/21 19:20 - Orders/Labs/Meds Labs: Laboratory Tests 07/12/21 07/12/21 07/12/21 Range/Units 18:27 18:27 18:45 WBC 11.1 H (5.0-10.0) 10^3/uL RBC 4.85 (4.6-6.2) 10^6/uL Hgb 15.1 (14.0-18.0) g/dL Hct 45.5 (40.0-54.0) % MCV 93.8 (80-100) fL MCH 31.1 (27.0-34.0) pg MCHC 33.2 (33.0-35.0) g/dL Plt Count 274 (150-450) 10^3/uL Neut % (Auto) 80.6 H (42.2-75.2) % Lymph % (Auto) 11.7 L (20.5-50.1) % Garvin % (Auto) 6.9 (2-8) % Eos % (Auto) 0.7 L (1.0-3.0) % Baso % (Auto) 0.1 (0.0-1.0) % Sodium 138 (136-145) mmol/L Potassium 3.5 (3.5-5.1) mmol/L Chloride 103 (98-107) mmol/L Carbon Dioxide 27 (21-32) mmol/L Anion Gap 11.5 (7-13) mEq/L BUN 13 (7-18) mg/dL Creatinine 1.05 (0.70-1.30) mg/dL Est Cr Clr Drug Dosing 113.94 mL/min Estimated GFR (MDRD) > 60 BUN/Creatinine Ratio 12.4 (No establ ref range) Glucose 93 (70-99) mg/dL POC Glucose (70-99) mg/dL Calcium 8.9 (8.5-10.1) mg/dL Magnesium 2.3 (1.8-2.4) mg/dL Total Bilirubin 0.3 (0.2-1.0) mg/dL AST 48 H (15-37) U/L ALT 121 H (16-63) U/L Alkaline Phosphatase 95 (46-116) U/L Troponin I High Sens 11 (<=76) pg/mL C-Reactive Protein < 0.2 (0.0-0.9) mg/dL Total Protein 8.8 H (6.4-8.2) g/dL Albumin 4.0 (3.4-5.0) g/dL Globulin 4.8 Albumin/Globulin Ratio 0.8 Ethyl Alcohol < 3 (0) mg/dL 07/12/21 07/12/21 Range/Units 19:12 20:40 WBC (5.0-10.0) 10^3/uL RBC (4.6-6.2) 10^6/uL Hgb (14.0-18.0) g/dL Hct (40.0-54.0) % MCV (80-100) fL MCH (27.0-34.0) pg MCHC (33.0-35.0) g/dL Plt Count (150-450) 10^3/uL Neut % (Auto) (42.2-75.2) % Lymph % (Auto) (20.5-50.1) % Garvin % (Auto) (2-8) % Eos % (Auto) (1.0-3.0) % Baso % (Auto) (0.0-1.0) % Sodium (136-145) mmol/L Potassium (3.5-5.1) mmol/L Chloride (98-107) mmol/L Carbon Dioxide (21-32) mmol/L Anion Gap (7-13) mEq/L BUN (7-18) mg/dL Creatinine (0.70-1.30) mg/dL Est Cr Clr Drug Dosing mL/min Estimated GFR (MDRD) BUN/Creatinine Ratio (No establ ref range) Glucose (70-99) mg/dL POC Glucose 79 (70-99) mg/dL Calcium (8.5-10.1) mg/dL Magnesium (1.8-2.4) mg/dL Total Bilirubin (0.2-1.0) mg/dL AST (15-37) U/L ALT (16-63) U/L Alkaline Phosphatase (46-116) U/L Troponin I High Sens 10 (<=76) pg/mL C-Reactive Protein (0.0-0.9) mg/dL Total Protein (6.4-8.2) g/dL Albumin (3.4-5.0) g/dL Globulin Albumin/Globulin Ratio Ethyl Alcohol (0) mg/dL Meds: Medications Discontinued Medications Generic Name Dose Route Start Last Admin Trade Name Marcy PRRas Reason Stop Dose Admin Naloxone HCl 2 mg 07/12/21 19:15 07/12/21 19:24 Naloxone 2 Mg/2 Ml Syringe IVPUSH 07/12/21 19:16 2 mg ONETIME ONE Administration Naloxone HCl 2 mg 07/12/21 20:27 07/12/21 20:44 Naloxone 2 Mg/2 Ml Syringe IVPUSH 07/12/21 20:28 2 mg ONETIME ONE Administration - Re-Assessments/Exams Free Text/Narrative Re-Assessment/Exam: 07/12/21 20:45 Arouses with stimulation, sluggish. VSS. oriented. 07/13/21 06:27 with in few minutes of repeat dose of Narcan, patient up and fled from ER. Patient still had IV in place [facility] notified (Sandhya Candelario) 07/12/21 EKG performed due to ST elevation on monitor. Will obtain troponin. Narcan 2mg IVP administered. Care of patient transferred to Sandhya Candelario PA-C. (Nery Oreilly) Departure - Departure Time of Disposition: 21:13 Condition: Fair <Sandhya Candelario - Last Filed: 07/13/21 06:24> <Nery Oreilly - Last Filed: 07/13/21 11:25> - Departure Disposition: Eloped 07 Clinical Impression: Drug abuse Overdose Qualifiers: Encounter type: initial encounter Injury intent: undetermined intent Qualified Code(s): T50.904A - Poisoning by unspecified drugs, medicaments and biological substances, undetermined, initial encounter - Discharge Information Referrals: PCP,None [Primary Care Provider] - Forms: ED Department Discharge Sepsis Event Note (ED) - Evaluation Sepsis Screening Result: No Definite Risk <Nery Oreilly - Last Filed: 07/13/21 11:25>
[2021-07-12 18:53] LABS: ANION GAP 11.5 mEq/L (7-13); CHLORIDE,CL 103 mmol/L (98-107); SODIUM,NA 138 mmol/L (136-145)
[2021-07-12] MEDS ORDERED: Naloxone 2 MG/2 ML Syringe IVPUSH ONE ×2 (19:15→20:27)
[2021-07-12 19:28] VITALS: BP 130/96; PULSE 84
== END 2021-07-12 21:13 | disposition left against medical advice (07) ==
LOC: DL.ED 18:23
DX: T50.904A Poisoning by unspecified drugs, medicaments and biological substances, undetermined, initial encounter (principal); F19.10 Other psychoactive substance abuse, uncomplicated
CPT/HCPCS: 36415; 80053; 80307; 82947; 83735; 84484; 85025; 86140; 93005; 96374; 96376; 99284; J2310

== ENCOUNTER → 2021-07-12 | Emergency (ER) | payer SELFPAY ==
[2021-07-12 18:15] VITALS: BP 138/108; PULSE 76
== END ==
LOC: EDBD → MERGE 18:00 → DL.ED 18:00
DX: Z53.8 Procedure and treatment not carried out for other reasons (principal)
CPT/HCPCS: 36415; 93010; 99285

== ENCOUNTER 2023-10-09 16:21 | Emergency (ER) | payer MEDICAID ==
[2023-10-09 16:43] VITALS: BP 146/93; PULSE 88
== END 2023-10-09 17:37 | disposition home or self-care (01) ==
LOC: DL.ED 16:21
DX: Z02.89 Encounter for other administrative examinations (principal)
CPT/HCPCS: 99282

== ENCOUNTER 2023-12-31 22:05 | Emergency (ER) | payer SELFPAY ==
[2023-12-31 22:33] LABS: BASOPHILS PERCENT AUTO 0.2 % (0.0-1.0); EOSINOPHILS PERCENT AUTO 0.1 % (1.0-3.0); HEMATOCRIT 51.9 % (40.0-54.0); HEMOGLOBIN 17.4 g/dL (14.0-18.0); LYMPHOCYTES PERCENT AUTO 40.4 % (20.5-50.1); MEAN CORPUSCULAR HEMOGLOBIN 29.5 pg (27.0-34.0); MEAN CORPUSCULAR HGB CONC 33.5 g/dL (33.0-35.0); MEAN CORPUSCULAR VOLUME 88.1 fL (80-100); MONOCYTES PERCENT AUTO 8.2 % (2-8); NEUTROPHILS PERCENT AUTO 51.1 % (42.2-75.2); PLATELET COUNT,PLT 339 10^3/uL (150-450); RED BLOOD CELL COUNT 5.89 10^6/uL (4.6-6.2); WHITE BLOOD CELL COUNT,WBC 13.7 10^3/uL (5.0-10.0)
[2023-12-31 22:40] LABS: PROTHROMBIN TIME 10.1 SEC (9.0-12.0)
[2023-12-31 23:30] LABS: ALANINE AMINOTRANSFERASE,ALT 51 U/L (16-63); ALKALINE PHOSPHATASE 124 U/L (46-116); ASPARTATE AMNIOTRANSFERASE,AST 46 U/L (15-37); BILIRUBIN TOTAL 0.9 mg/dL (0.2-1.0); BLOOD UREA NITROGEN,BUN 15 mg/dL (7-18); BUN/CREATININE RATIO 8.8 (No establ ref range); CALCIUM 9.2 mg/dL (8.5-10.1); CARBON DIOXIDE,CO2 13 mmol/L (21-32); CHLORIDE,CL 100 mmol/L (98-107); ETHANOL BLOOD MEDICAL 32 mg/dL (0); GLUCOSE RANDOM 126 mg/dL (70-99); LIPASE 32 U/L (16-77); MAGNESIUM 1.9 mg/dL (1.8-2.4); PROTEIN TOTAL,TP 10.5 g/dL (6.4-8.2); SODIUM,NA 142 mmol/L (136-145); TSH ULTRASENSITIVE 1.83 uIU/mL (0.36-3.74)
[2023-12-31 23:36] LABS: A/G RATIO 0.88; ALBUMIN 4.9 g/dL (3.4-5.0)
[2023-12-31 23:38] LABS: ESTIMATED GFR 55 mL/min (>=60)
== END 2023-12-31 22:20 | disposition left against medical advice (07) ==
LOC: DL.ED 22:20
DX: F10.10 Alcohol abuse, uncomplicated (principal); F15.10 Other stimulant abuse, uncomplicated; R07.2 Precordial pain; Y90.9 Presence of alcohol in blood, level not specified
CPT/HCPCS: 36415; 80053; 80307; 83690; 83735; 84443; 84484; 85025; 85610; 93010; 99285

== ENCOUNTER 2024-01-20 09:26 | Emergency (ER) | payer SELFPAY ==
[2024-01-20] MEDS: Aspirin 81 MG Tab.Chew PO ONE (09:45)
[2024-01-20] MEDS: Sodium Chloride 0.9% 10 ML Syringe FLUSH PRN (09:46)
[2024-01-20] MEDS: Clopidogrel 75 MG Tab PO ONE (09:46)
[2024-01-20 09:48] VITALS: BP 139/100; PULSE 84
[2024-01-20 09:51] LABS: BASOPHILS PERCENT AUTO 0.5 % (0.0-1.0); EOSINOPHILS PERCENT AUTO 1.1 % (1.0-3.0); HEMATOCRIT 47.1 % (40.0-54.0); HEMOGLOBIN 15.9 g/dL (14.0-18.0); LYMPHOCYTES PERCENT AUTO 23.9 % (20.5-50.1); MEAN CORPUSCULAR HEMOGLOBIN 30.5 pg (27.0-34.0); MEAN CORPUSCULAR HGB CONC 33.8 g/dL (33.0-35.0); MEAN CORPUSCULAR VOLUME 90.2 fL (80-100); MONOCYTES PERCENT AUTO 9.1 % (2-8); NEUTROPHILS PERCENT AUTO 65.4 % (42.2-75.2); PLATELET COUNT,PLT 243 10^3/uL (150-450); RED BLOOD CELL COUNT 5.22 10^6/uL (4.6-6.2); WHITE BLOOD CELL COUNT,WBC 5.5 10^3/uL (5.0-10.0)
[2024-01-20] MEDS: Heparin Sodium/0.45% NaCl 25,000 UNITS/500 ML BAG IV SCH (09:51)
[2024-01-20] MEDS: Heparin Sodium 5,000 Units/ML Vial IVPUSH ONE (09:52)
[2024-01-20 10:05] LABS: PROTHROMBIN TIME 10.1 SEC (9.0-12.0); PTT,PARTIAL THROMBOPLSTIN TIME 27.2 SEC (22.0-34.0)
[2024-01-20 10:09] LABS: A/G RATIO 0.8; ALANINE AMINOTRANSFERASE,ALT 146 U/L (16-63); ALBUMIN 3.7 g/dL (3.4-5.0); ALKALINE PHOSPHATASE 98 U/L (46-116); ANION GAP 14.7 mEq/L (7-13); ASPARTATE AMNIOTRANSFERASE,AST 95 U/L (15-37); BILIRUBIN TOTAL 1.2 mg/dL (0.2-1.0); BLOOD UREA NITROGEN,BUN 11 mg/dL (7-18); BUN/CREATININE RATIO 13.4 (No establ ref range); CALCIUM 8.9 mg/dL (8.5-10.1); CARBON DIOXIDE,CO2 26 mmol/L (21-32); CHLORIDE,CL 102 mmol/L (98-107); CREATININE 0.82 mg/dL (0.70-1.30); EST CRCL DRUG DOSING (CG) 151.76 mL/min; GLUCOSE RANDOM 96 mg/dL (70-99); POTASSIUM,K 3.7 mmol/L (3.5-5.1); PROTEIN TOTAL,TP 8.2 g/dL (6.4-8.2); SODIUM,NA 139 mmol/L (136-145)
[2024-01-20 10:10] LABS: ESTIMATED GFR 120 mL/min (>=60); ETHANOL BLOOD MEDICAL < 3 mg/dL (0)
[2024-01-20 10:16] LABS: B-TYPE NATRIURETIC PEPTIDE,BNP 5 pg/ml (0-100)
[2024-01-20 10:47] LABS: APPEARANCE,URINE CLEAR (CLEAR); BILIRUBIN,URINE MODERATE (NEGATIVE); COLOR,URINE YELLOW (YELLOW); GLUCOSE,URINE NEGATIVE (NEGATIVE); KETONES,URINE 80 (NEGATIVE); LEUKOCYTE ESTERASE,URINE NEGATIVE (NEGATIVE); NITRITE,URINE NEGATIVE (NEGATIVE); OCCULT BLOOD,URINE NEGATIVE (NEGATIVE); PROTEIN,URINE 100 (NEGATIVE); UROBILINOGEN,URINE >=8.0 mg/dL (0.2-1.0)
[2024-01-20 10:51] LABS: AMPHETAMINES,URINE NEGATIVE (NEGATIVE); BARBITURATES,URINE NEGATIVE (NEGATIVE); BENZODIAZEPINE,URINE NEGATIVE (NEGATIVE); MDMA (ECSTASY), URINE NEGATIVE (NEGATIVE); METHADONE,URINE NEGATIVE (NEGATIVE); METHAMPHETAMINES,URINE NEGATIVE (NEGATIVE); OPIATES,URINE NEGATIVE (NEGATIVE); OXYCODONE,URINE NEGATIVE (NEGATIVE); PHENCYCLIDINE,URINE NEGATIVE (NEGATIVE); TCA,URINE NEGATIVE (NEGATIVE)
[2024-01-20 11:12] LABS: BACTERIA,URINE FEW /HPF (0-FEW/HPF); EPITHELIAL CELLS,URINE OCCASIONAL /HPF (NOT SEEN); MUCUS,URINE MODERATE /LPF (NOT SEEN); RBC,URINE 0-5 /HPF (0-5); WBC,URINE 0-5 /HPF (0-5/HPF)
[2024-01-20] MEDS: Sodium Chloride 0.9% 1,000 ML IV ONE (11:13)
[2024-01-20] MEDS: Colchicine 0.6 MG Tab PO ONE (14:03)
[2024-01-20] MEDS: Dexamethasone 4 MG/ML SDV IVPUSH ONE (14:03)
[2024-01-22 14:47] LABS: HAV AB IGM Negative (Negative); HBC IGM Negative (Negative); HEP B SURG AG Negative (Negative); HEP C AB BY CIA High Pos (Negative); HEP C AB BY CIA INDEX >11.00 IV
[2024-01-23 05:46] LABS: HEP C QNT BY NAAT (log IU/mL) 5.96 log IU/mL; HEP C QNT BY NAAT INTERP Detected (Not Detected)
== END 2024-01-20 14:35 | disposition home or self-care (01) ==
LOC: DL.ED 09:26
DX: I30.9 Acute pericarditis, unspecified (principal); F17.210 Nicotine dependence, cigarettes, uncomplicated
CPT/HCPCS: 36415; 71045; 80053; 80074; 80305; 80307; 81001; 83880; 84484; 85025; 85610; 85730; 86140; 93005; 93306; 96365; 96366; 96375; 99285; A9270; J1100; J1644; J7030; J3490

== ENCOUNTER 2024-02-03 16:34 | Emergency (ER) | payer SELFPAY ==
[2024-02-03 17:14] VITALS: BP 164/117; PULSE 112
[2024-02-03] MEDS: Sodium Chloride 0.9% 1,000 ML IV ONE (17:26)
[2024-02-03] MEDS: Sodium Chloride 0.9% 10 ML Syringe FLUSH PRN (17:26)
[2024-02-03 17:34] LABS: APPEARANCE,URINE CLEAR (CLEAR); BILIRUBIN,URINE NEGATIVE (NEGATIVE); COLOR,URINE YELLOW (YELLOW); GLUCOSE,URINE NEGATIVE (NEGATIVE); KETONES,URINE 15 (NEGATIVE); LEUKOCYTE ESTERASE,URINE NEGATIVE (NEGATIVE); NITRITE,URINE NEGATIVE (NEGATIVE); OCCULT BLOOD,URINE NEGATIVE (NEGATIVE); PH,URINE 8.5 (5.0-9.0); PROTEIN,URINE NEGATIVE (NEGATIVE)
[2024-02-03 17:35] LABS: BASOPHILS PERCENT AUTO 0.2 % (0.0-1.0); EOSINOPHILS PERCENT AUTO 0.1 % (1.0-3.0); HEMATOCRIT 45.6 % (40.0-54.0); HEMOGLOBIN 15.9 g/dL (14.0-18.0); LYMPHOCYTES PERCENT AUTO 11.6 % (20.5-50.1); MEAN CORPUSCULAR HEMOGLOBIN 30.9 pg (27.0-34.0); MEAN CORPUSCULAR HGB CONC 34.9 g/dL (33.0-35.0); MEAN CORPUSCULAR VOLUME 88.5 fL (80-100); MONOCYTES PERCENT AUTO 9.3 % (2-8); NEUTROPHILS PERCENT AUTO 78.8 % (42.2-75.2); PLATELET COUNT,PLT 261 10^3/uL (150-450); RED BLOOD CELL COUNT 5.15 10^6/uL (4.6-6.2); WHITE BLOOD CELL COUNT,WBC 15.4 10^3/uL (5.0-10.0)
[2024-02-03 17:36] LABS: PTT,PARTIAL THROMBOPLSTIN TIME 26.1 SEC (22.0-34.0)
[2024-02-03 17:37] LABS: LACTIC ACID 1.4 mmol/L (0.4-2.0)
[2024-02-03 17:39] LABS: AMPHETAMINES,URINE NEGATIVE (NEGATIVE); BARBITURATES,URINE NEGATIVE (NEGATIVE); BENZODIAZEPINE,URINE NEGATIVE (NEGATIVE); MDMA (ECSTASY), URINE NEGATIVE (NEGATIVE); METHADONE,URINE NEGATIVE (NEGATIVE); METHAMPHETAMINES,URINE POSITIVE (NEGATIVE); OPIATES,URINE NEGATIVE (NEGATIVE); OXYCODONE,URINE NEGATIVE (NEGATIVE); PHENCYCLIDINE,URINE NEGATIVE (NEGATIVE); TCA,URINE NEGATIVE (NEGATIVE)
[2024-02-03 17:42] LABS: A/G RATIO 0.9; ALANINE AMINOTRANSFERASE,ALT 217 U/L (16-63); ALBUMIN 4.1 g/dL (3.4-5.0); ALKALINE PHOSPHATASE 127 U/L (46-116); ANION GAP 17.8 mEq/L (7-13); ASPARTATE AMNIOTRANSFERASE,AST 63 U/L (15-37); BILIRUBIN TOTAL 2.1 mg/dL (0.2-1.0); BLOOD UREA NITROGEN,BUN 10 mg/dL (7-18); BUN/CREATININE RATIO 11.8 (No establ ref range); C-REACTIVE PROTEIN 9.99 ng/dL (<=0.50); CALCIUM 9.7 mg/dL (8.5-10.1); CARBON DIOXIDE,CO2 22 mmol/L (21-32); CHLORIDE,CL 99 mmol/L (98-107); CREATININE 0.85 mg/dL (0.70-1.30); GLUCOSE RANDOM 75 mg/dL (70-99); MAGNESIUM 1.5 mg/dL (1.8-2.4); POTASSIUM,K 2.8 mmol/L (3.5-5.1); PROTEIN TOTAL,TP 8.7 g/dL (6.4-8.2); SODIUM,NA 136 mmol/L (136-145); TSH ULTRASENSITIVE 0.82 uIU/mL (0.36-3.74)
[2024-02-03 17:43] LABS: ESTIMATED GFR 119 mL/min (>=60); ETHANOL BLOOD MEDICAL < 3 mg/dL (0)
[2024-02-03] MEDS: Magnesium Oxide 400 MG Tab PO ONE (18:13)
[2024-02-03] MEDS: NS with KCl 40mEq 1,000 ML IV SCH (18:49)
[2024-02-03] MEDS: Potassium Chloride 10 MEQ Tab.ER PO ONE (18:53)
[2024-02-03] MEDS: Magnesium Oxide 400 MG Tab ONE (19:13)
[2024-02-04] MEDS ORDERED: Magnesium Oxide 400 MG Tab PO ONE (18:15)
== END 2024-02-03 19:15 | disposition left against medical advice (07) ==
LOC: DL.ED 16:34
DX: S62.346A Nondisplaced fracture of base of fifth metacarpal bone, right hand, initial encounter for closed fracture (principal); A41.9 Sepsis, unspecified organism; W22.8XXA Striking against or struck by other objects, initial encounter; Y93.89 Activity, other specified
CPT/HCPCS: 36415; 71045; 73120; 80053; 80305; 80307; 81003; 83605; 83735; 84145; 84443; 84484; 85025; 85610; 85730; 86140; 87040; 93005; 93010; 96361; 96374; 96375; 99284; 99285; A9270; J3370; J3480; J7030; J7050; J3490

== ENCOUNTER 2024-02-04 09:09 | Emergency (ER) | payer SELFPAY ==
[2024-02-04 10:57] LABS: HEMOGLOBIN 14.7 g/dL (14.0-18.0); MEAN CORPUSCULAR HEMOGLOBIN 30.7 pg (27.0-34.0); MEAN CORPUSCULAR HGB CONC 33.4 g/dL (33.0-35.0); MEAN CORPUSCULAR VOLUME 91.9 fL (80-100); PLATELET COUNT,PLT 223 10^3/uL (150-450); RED BLOOD CELL COUNT 4.79 10^6/uL (4.6-6.2); WHITE BLOOD CELL COUNT,WBC 9.7 10^3/uL (5.0-10.0)
[2024-02-04 10:58] LABS: EOSINOPHILS PERCENT AUTO 1.4 % (1.0-3.0); LYMPHOCYTES PERCENT AUTO 11.8 % (20.5-50.1); MONOCYTES PERCENT AUTO 11.9 % (2-8); NEUTROPHILS PERCENT AUTO 74.6 % (42.2-75.2)
[2024-02-04 10:59] LABS: BASOPHILS PERCENT AUTO 0.3 % (0.0-1.0)
[2024-02-04] MEDS: cefTRIAXone 1 GM Vial IVPUSH ONE (11:01)
[2024-02-04] MEDS: Sodium Chloride 0.9% 1,000 ML IV ONE ×2 (11:01→11:59)
[2024-02-04 11:12] LABS: CHLORIDE,CL 104 mmol/L (98-107); SODIUM,NA 139 mmol/L (136-145)
[2024-02-04 11:13] LABS: A/G RATIO 0.75; ALANINE AMINOTRANSFERASE,ALT 159 U/L (16-63); ALBUMIN 3.3 g/dL (3.4-5.0); ALKALINE PHOSPHATASE 111 U/L (46-116); BILIRUBIN TOTAL 1.5 mg/dL (0.2-1.0); BLOOD UREA NITROGEN,BUN 11 mg/dL (7-18); BUN/CREATININE RATIO 12.9 (No establ ref range); CALCIUM 9.2 mg/dL (8.5-10.1); CARBON DIOXIDE,CO2 26 mmol/L (21-32); CREATININE 0.85 mg/dL (0.70-1.30); ESTIMATED GFR 119 mL/min (>=60); GLUCOSE RANDOM 105 mg/dL (70-99); MAGNESIUM 2.1 mg/dL (1.8-2.4); PROTEIN TOTAL,TP 7.7 g/dL (6.4-8.2)
[2024-02-04 11:14] LABS: ASPARTATE AMNIOTRANSFERASE,AST 50 U/L (15-37); ETHANOL BLOOD MEDICAL < 3 mg/dL (0)
[2024-02-04 11:16] LABS: LACTIC ACID 1.2 mmol/L (0.4-2.0)
[2024-02-04 11:23] LABS: AMPHETAMINES,URINE POSITIVE (NEGATIVE); BARBITURATES,URINE NEGATIVE (NEGATIVE); BENZODIAZEPINE,URINE NEGATIVE (NEGATIVE); MDMA (ECSTASY), URINE NEGATIVE (NEGATIVE); METHADONE,URINE NEGATIVE (NEGATIVE); METHAMPHETAMINES,URINE POSITIVE (NEGATIVE); OPIATES,URINE NEGATIVE (NEGATIVE); OXYCODONE,URINE NEGATIVE (NEGATIVE); PHENCYCLIDINE,URINE NEGATIVE (NEGATIVE); TCA,URINE NEGATIVE (NEGATIVE)
[2024-02-04 11:24] LABS: APPEARANCE,URINE CLEAR (CLEAR); BILIRUBIN,URINE NEGATIVE (NEGATIVE); COLOR,URINE YELLOW (YELLOW); GLUCOSE,URINE NEGATIVE (NEGATIVE); KETONES,URINE NEGATIVE (NEGATIVE); OCCULT BLOOD,URINE NEGATIVE (NEGATIVE); PROTEIN,URINE NEGATIVE (NEGATIVE)
[2024-02-04 11:25] LABS: LEUKOCYTE ESTERASE,URINE NEGATIVE (NEGATIVE); NITRITE,URINE NEGATIVE (NEGATIVE); UROBILINOGEN,URINE >=8.0 mg/dL (0.2-1.0)
[2024-02-04 11:44] VITALS: BP 139/96; PULSE 95
[2024-02-04] MEDS: Ketorolac 30 MG/ML SDV IVPUSH ONE (11:49)
[2024-02-04] MEDS: VANCOmycin 1.75 GM/350 ML 350 ML IV ONE (11:49)
== END 2024-02-04 12:58 ==
LOC: DL.ED 09:09
DX: S62.396A Other fracture of fifth metacarpal bone, right hand, initial encounter for closed fracture (principal); L03.113 Cellulitis of right upper limb; F15.10 Other stimulant abuse, uncomplicated; E86.9 Volume depletion, unspecified; F17.210 Nicotine dependence, cigarettes, uncomplicated; W22.8XXA Striking against or struck by other objects, initial encounter; Y93.89 Activity, other specified
CPT/HCPCS: 36415; 80053; 80305; 80307; 81003; 83605; 83735; 85025; 86140; 96361; 96365; 96375; 99284; J0696; J1885; J3370; J7030

== ENCOUNTER 2024-12-03 23:06 | Emergency (ER) | payer MEDICAID ==
[2024-12-03 23:44] VITALS: BP 146/98; PULSE 133
[2024-12-04] MEDS: LORazepam 1 MG Tab PO ONE (00:34)
== END 2024-12-04 01:21 | disposition home or self-care (01) ==
LOC: DL.ED 23:06
DX: F41.9 Anxiety disorder, unspecified (principal); F15.10 Other stimulant abuse, uncomplicated
CPT/HCPCS: 99283; 99284; A9270